=== PATIENT | female | born 1975 | race Caucasian/White ===

== ENCOUNTER 2018-08-18 01:26 | Emergency (ER) | payer SELFPAY ==
--- NOTE | 2018-08-18 01:30 | ER Document Report ---
ED Medical Screen (RME) - General Stated Complaint: IRREGULAR HEART BEAT Time Seen by Provider: 08/18/18 01:29 Mode of Arrival: Ambulatory Information source: Patient Notes: Patient is an otherwise healthy 43-year-old female who presents with chief complaint of irregular heartbeat. Patient reports she was fine before she went to bed. Reports that she woke up just prior to coming to the emergency department feeling her heart was jumping out of her chest. She states that she checked her heart rate and found it to be approximately 138 bpm. She also states that her blood pressure was elevated at that time. She denies any chest pain or shortness of breath, denies any nausea, vomiting or recent illness. Patient denies ever having any similar episodes happened in the past. Initial HR on arrival is 110. TRAVEL OUTSIDE OF THE [place] IN LAST 30 DAYS: No - Related Data Allergies/Adverse Reactions: Sulfa (Sulfonamide Antibiotics) Allergy (Verified 07/17/12 15:08) Past Medical History Pulmonary Medical History: Reports: Hx Asthma, Hx Pneumonia Past Surgical History: Reports: Hx Cholecystectomy - Immunizations Hx Diphtheria, Pertussis, Tetanus Vaccination: Yes
[2018-08-18 01:37] VITALS: BP 144/98
--- NOTE | 2018-08-18 22:05 | EKG REPORT ---
SEVERITY:- BORDERLINE ECG - SINUS RHYTHM PROBABLE LEFT ATRIAL ABNORMALITY : Confirmed by: Ana Ashton 18-Aug-2018 22:05:21
== END 2018-08-18 02:45 | disposition left against medical advice (07) ==
LOC: ER 01:26
DX: I49.9 Cardiac arrhythmia, unspecified (principal); R03.0 Elevated blood-pressure reading, without diagnosis of hypertension; Z90.49 Acquired absence of other specified parts of digestive tract; Z88.2 Allergy status to sulfonamides
CPT/HCPCS: 93005; 93010; 99281

== ENCOUNTER 2018-09-13 13:02 | Emergency (ER) | payer SELFPAY ==
[2018-09-13 13:22] VITALS: BP 131/86
[2018-09-13] MEDS ORDERED: ASPIRIN 81 MG TABLET, CHEWABLE PO ONE (13:42)
--- NOTE | 2018-09-13 13:43 | ER Document Report ---
ED Medical Screen (RME) - General Chief Complaint: Chest Pain Stated Complaint: CHEST PAIN Time Seen by Provider: 09/13/18 13:41 Mode of Arrival: Ambulatory Information source: Patient Notes: 43-year-old female presented to ED for complaint of chest pain racing heart elevated blood pressure. She states the worst pain is on the right lateral chest going down her right arm upper right neck. She states she does not know she is having a panic attack or with going on because she had a similar episode about a month ago. She states her old medical history is high blood pressure and asthma. She states she quit smoking about a month ago she got a history of gallbladder removed and she lives alone. Patient is alert and oriented respirations regular and unlabored speaking in full sentences. Lungs are clear to auscultation at this time. I have greeted and performed a rapid initial assessment of this patient. A comprehensive ED assessment and evaluation of the patient, analysis of test results and completion of medical decision making process will be conducted by an additional ED providers. TRAVEL OUTSIDE OF THE [place] IN LAST 30 DAYS: No - Related Data Allergies/Adverse Reactions: Sulfa (Sulfonamide Antibiotics) Allergy (Verified 09/13/18 13:04) Past Medical History Pulmonary Medical History: Reports: Hx Asthma, Hx Pneumonia Renal/ Medical History: Denies: Hx Peritoneal Dialysis Past Surgical History: Reports: Hx Cholecystectomy - Immunizations Hx Diphtheria, Pertussis, Tetanus Vaccination: Yes Physical Exam - Vital signs Vitals: Temp Pulse Resp BP Pulse Ox 97.6 F 91 16 131/86 H 97 09/13/18 13:20 09/13/18 13:20 09/13/18 13:20 09/13/18 13:20 09/13/18 13:20 Course - Vital Signs Vital signs: Temp Pulse Resp BP Pulse Ox 97.6 F 91 16 131/86 H 97 09/13/18 13:20 09/13/18 13:20 09/13/18 13:20 09/13/18 13:20 09/13/18 13:20
--- NOTE | 2018-09-13 14:06 | RADIOLOGY REPORT (SQ) ---
EXAM DESCRIPTION: CHEST 2 VIEWS COMPLETED DATE/TIME: 09/13/2018 1:55 pm REASON FOR STUDY: Chest pain radiating to right lateral chest COMPARISON: 12/19/2014 EXAM PARAMETERS: NUMBER OF VIEWS: two views TECHNIQUE: Digital Frontal and Lateral radiographic views of the chest acquired. RADIATION DOSE: NA LIMITATIONS: none FINDINGS: LUNGS AND PLEURA: Possible small right lateral pneumothorax versus superimposed soft tissu es or foreign material such as cloth. MEDIASTINUM AND HILAR STRUCTURES: No masses or contour abnormalities. HEART AND VASCULAR STRUCTURES: Heart normal size. No evidence for failure. BONES: No acute findings. HARDWARE: None in the chest. OTHER: No other significant finding. IMPRESSION: Possible small right lateral pneumothorax versus superimposed soft tissues or foreign ma terial such as cloth. No obvious etiology such as displaced rib fracture. Consider CT to further ev aluate. TECHNICAL DOCUMENTATION: JOB ID: [id number] [employer]- All Rights Reserved Reading location - IP/workstation name: [email or web address]
[2018-09-13 14:34] LABS: ABSOLUTE BASOPHILS # (AUTO) 0.1 10^3/uL (0.0-0.2); ABSOLUTE LYMPHOCYTES (AUTO) 1.5 10^3/uL (0.5-4.7); ABSOLUTE MONOCYTES (AUTO) 0.7 10^3/uL (0.1-1.4); ABSOLUTE NEUT (AUTO) 12.3 10^3/uL (1.7-8.2); BASOPHILS % (AUTO) 0.5 % (0-2); EOSINOPHILS % (AUTO) 0.2 % (0-6); HEMOGLOBIN 13.3 g/dL (12.0-15.5); LYMPHOCYTES % (AUTO) 10.2 % (13-45); MEAN CORPUSCULAR HEMOGLOBIN 29.1 pg (27.0-33.4); MEAN CORPUSCULAR HGB CONC 33.4 g/dL (32.0-36.0); MEAN CORPUSCULAR VOLUME 87 fl (80-97); MONOCYTES % (AUTO) 4.8 % (3-13); PLATELET COUNT 388 10^3/uL (150-450); RED BLOOD COUNT 4.59 10^6/uL (3.72-5.28); RED CELL DISTRIBUTION WIDTH 13.6 % (11.5-14.0); SEGMENTED NEUTROPHILS % (AUTO) 84.3 % (42-78); TOTAL CELLS COUNTED % (AUTO) 100 %; WHITE BLOOD COUNT 14.6 10^3/uL (4.0-10.5)
[2018-09-13 14:57] LABS: ALANINE AMINOTRANSFERASE 27 U/L (9-52); ALBUMIN 4.7 g/dL (3.5-5.0); ALKALINE PHOSPHATASE 83 U/L (38-126); ANION GAP 11 (5-19); ASPARTATE AMINO TRANSFERASE 19 U/L (14-36); BILIRUBIN,DIRECT 0.3 mg/dL (0.0-0.4); BILIRUBIN,TOTAL 0.5 mg/dL (0.2-1.3); BLOOD UREA NITROGEN 10 mg/dL (7-20); CALCIUM 10.1 mg/dL (8.4-10.2); CARBON DIOXIDE 25 mmol/L (22-30); CHLORIDE 103 mmol/L (98-107); GLUCOSE 106 mg/dL (75-110); LIPASE 192.4 U/L (23-300); POTASSIUM 4.3 mmol/L (3.6-5.0); SODIUM 138.9 mmol/L (137-145); TOTAL PROTEIN 8.2 g/dL (6.3-8.2)
--- NOTE | 2018-09-13 15:32 | EKG REPORT ---
SEVERITY:- OTHERWISE NORMAL ECG - SINUS TACHYCARDIA : Confirmed by: Felisha Godoy MD 13-Sep-2018 15:31:50
== END 2018-09-13 19:34 | disposition left against medical advice (07) ==
LOC: ER 13:02
DX: Z53.21 Procedure and treatment not carried out due to patient leaving prior to being seen by health care provider (principal); R07.9 Chest pain, unspecified; R03.0 Elevated blood-pressure reading, without diagnosis of hypertension; M79.601 Pain in right arm; M54.2 Cervicalgia; J45.909 Unspecified asthma, uncomplicated
CPT/HCPCS: 36415; 71046; 80053; 83690; 84703; 85025; 93005; 93010; 99281